=== PATIENT | male | born 1950 | race Caucasian/White ===

== ENCOUNTER 2022-03-17 22:15 | Inpatient (IN) | payer OTHER ==
[~2022-03-17] VITALS: Ht 182.9 cm; Wt 66.2 kg
[2022-03-17 23:38] LABS: HEMOGLOBIN 10.5 gm/dl (14.0-17.5); RED BLOOD COUNT 3.79 M/UL (4.20-5.50); WHITE BLOOD COUNT 5.5 K/UL (4.5-11.0)
[2022-03-18] MEDS ORDERED: LACTULOSE10 GM/151 PO (15:06)
[2022-03-18] MEDS ORDERED: FLEET ENEMA 13133 ML PR (15:08)
[2022-03-18] MEDS ORDERED: GABAPENTIN400 MG PO (15:11)
[2022-03-18] MEDS ORDERED: LEVOFLOXACIN500 MG PO (15:11)
[2022-03-18] MEDS ORDERED: FLONASE 0.05% N16 GM (15:12)
[2022-03-18] MEDS ORDERED: SYMBICORT 16010.2 GM INH (15:12)
[2022-03-18] MEDS ORDERED: MONTELUKAST SOD10 MG PO (15:13)
[2022-03-18] MEDS ORDERED: PROTONIX 40 MG40 M1 PO (15:13)
[2022-03-18] MEDS ORDERED: LISINOPRIL20 MG PO (15:13)
[2022-03-18] MEDS ORDERED: CLEARLAX119 GM PO (15:14)
[2022-03-18] MEDS ORDERED: FLOMAX 0.4 MG0.4 MG PO (15:14)
[2022-03-18] MEDS ORDERED: SPIRIVA18 MCG INH (15:16)
[2022-03-18] MEDS ORDERED: TERAZOSIN HCL2 MG PO (15:16)
[2022-03-18] MEDS ORDERED: PROAIR HFA8.5 GM INH (15:17)
[2022-03-18] MEDS ORDERED: LORATADINE10 MG PO (15:18)
[2022-03-18] MEDS ORDERED: BACTROBAN OINT22 GM TOP (15:18)
[2022-03-18] MEDS ORDERED: LANTUS SOL100 UNIT/1 SQ (15:22)
[2022-03-18] MEDS ORDERED: MUCUS RELIEF600 MG PO (15:23)
[2022-03-18] MEDS ORDERED: DAILY VALUE1 EACH PO (15:24)
[2022-03-18] MEDS ORDERED: MILK OF MA400 MG/5 M PO (15:25)
[2022-03-18] MEDS ORDERED: PEPTO-BISM262 MG/15 PO (15:27)
[2022-03-19 05:54] LABS: HEMOGLOBIN 9.5 gm/dl (14.0-17.5); WHITE BLOOD COUNT 4.5 K/UL (4.5-11.0)
[2022-03-19 05:55] LABS: RED BLOOD COUNT 3.4 M/UL (4.20-5.50)
[2022-03-19 08:14] LABS: TESTOSTERONE, SERUM 129 ng/dL (264-916)
--- NOTE | 2022-03-19 18:26 | NUR ---
PT PLACED ON WAFFLE MATTRESS DUE TO REDDENED BOTTOM. pT STATES HE WAS NOT ABLE TO TURN HIMSELF LAST NIGHT.
[2022-03-20 06:54] LABS: HEMOGLOBIN 9.2 gm/dl (14.0-17.5); RED BLOOD COUNT 3.28 M/UL (4.20-5.50); WHITE BLOOD COUNT 4.9 K/UL (4.5-11.0)
--- NOTE | 2022-03-21 09:32 | NUR ---
DR. GAMA NOTIFED AT [address] DE JESUS TO DISCUSS PT CARE VOICEMAIL LEFT FOR HER TO RETURN A PHONE CALL TO [facility].
--- NOTE | 2022-03-21 18:22 | NUR ---
CONTACTED AND HE ASKED ME TO PUT THE ORDER FOR THE LYMPH NODE BIOSPY IN AT THIS TIME.
[2022-03-23 06:29] LABS: HEMOGLOBIN 9.4 gm/dl (14.0-17.5); RED BLOOD COUNT 3.38 M/UL (4.20-5.50); WHITE BLOOD COUNT 5.2 K/UL (4.5-11.0)
[2022-03-23 07:00] LABS: BUN/CREATININE RATIO 11 (0-10)
--- NOTE | 2022-03-23 13:19 | NUR ---
PATIENT ROOM AIR OXYGEN SATURATION ON AMBULATION IS 85%. OXYGEN REAPPLIED AT 3 LITERS VIA NASAL CANNULA. OXYGEN SATURATION RAISED OVER 90%. NO S/SX OF PAIN OR DISCOMFORT NOTED. BED LOCKED AND LOW. CALL LIGHT WITHIN REACH.
--- NOTE | 2022-03-23 16:25 | NUR ---
REPORT CALLED TO LUIS CARLOS AT [facility].
== END 2022-03-23 19:25 | disposition home health service (06) | DRG 683 ==
LOC: ER1 22:15 → CDU 03-18 08:34 → MED SURG 4 03-18 10:31
PROVIDERS: Family Medicine; Internal Medicine; Physician Assistant Medical; Student in an Organized Health Care Education/Training Program; ADMIT Internal Medicine
PROC: 07DJ3ZX Extraction of Left Inguinal Lymphatic, Percutaneous Approach, Diagnostic (ICD-10-PCS; principal; 2022-03-22)
DX: N17.9 Acute kidney failure, unspecified (principal); M62.82 Rhabdomyolysis; N13.30 Unspecified hydronephrosis; Z20.822 Contact with and (suspected) exposure to COVID-19; J44.9 Chronic obstructive pulmonary disease, unspecified; F17.220 Nicotine dependence, chewing tobacco, uncomplicated; R59.1 Generalized enlarged lymph nodes; E11.21 Type 2 diabetes mellitus with diabetic nephropathy; I10 Essential (primary) hypertension; Z85.46 Personal history of malignant neoplasm of prostate; Z88.0 Allergy status to penicillin; Z90.49 Acquired absence of other specified parts of digestive tract; Z80.9 Family history of malignant neoplasm, unspecified; Z79.4 Long term (current) use of insulin
CPT/HCPCS: 36415; 71045; 72157; 76942; 80048; 80053; 81001; 82550; 82553; 82652; 82962; 83735; 84153; 84403; 84484; 85025; 85027; 93005; 94640; 94664; 94760; 96374; 97116; 97161; 99285; A9577; G0378; J1650; J2270; J7030; Q9967

== ENCOUNTER → 2022-05-05 | Outpatient (CLI) | payer OTHER ==
[~2022-05-05] MED LIST: BACTROBAN OINT22 GM TOP; CLEARLAX119 GM PO; DAILY VALUE1 EACH PO; FLEET ENEMA 13133 ML PR; FLOMAX 0.4 MG0.4 MG PO; FLONASE 0.05% N16 GM; GABAPENTIN400 MG PO; LACTULOSE10 GM/151 PO; LANTUS SOL100 UNIT/1 SQ; LEVOFLOXACIN500 MG PO; LISINOPRIL20 MG PO; LORATADINE10 MG PO; MILK OF MA400 MG/5 M PO; MONTELUKAST SOD10 MG PO; MUCUS RELIEF600 MG PO; PEPTO-BISM262 MG/15 PO; PROAIR HFA8.5 GM INH; PROTONIX 40 MG40 M1 PO; SPIRIVA18 MCG INH; SYMBICORT 16010.2 GM INH; TERAZOSIN HCL2 MG PO
== END ==
LOC: US 05-04 15:30
DX: D69.6 Thrombocytopenia, unspecified (principal); R97.20 Elevated prostate specific antigen [PSA]; C78.01 Secondary malignant neoplasm of right lung; C61 Malignant neoplasm of prostate
CPT/HCPCS: 93971

== ENCOUNTER → 2022-05-13 | Outpatient (CLI) | payer OTHER | LOC: NM 07:35 | DX: D69.6 Thrombocytopenia, unspecified (principal); R97.20 Elevated prostate specific antigen [PSA]; C78.01 Secondary malignant neoplasm of right lung; C61 Malignant neoplasm of prostate | CPT/HCPCS: 78306; A9503 ==

== ENCOUNTER → 2022-06-06 | Outpatient (CLI) | payer OTHER ==
[2022-06-06 12:16] LABS: RED BLOOD COUNT 4.48 M/UL (4.20-5.50); WHITE BLOOD COUNT 5.5 K/UL (4.5-11.0)
[2022-06-06 12:48] LABS: BUN/CREATININE RATIO 13 (0-10)
== END ==
LOC: CT 11:30
PROVIDERS: Internal Medicine Hematology & Oncology
DX: C61 Malignant neoplasm of prostate (principal); R97.20 Elevated prostate specific antigen [PSA]; D69.6 Thrombocytopenia, unspecified; C78.01 Secondary malignant neoplasm of right lung; R91.8 Other nonspecific abnormal finding of lung field; R59.1 Generalized enlarged lymph nodes; N32.89 Other specified disorders of bladder
CPT/HCPCS: 36415; 71260; 80053; 85025; Q9965